=== PATIENT | female | born 1995 | race Caucasian/White ===

== ENCOUNTER 2017-12-25 22:19 | Inpatient (IN) ==
[2017-12-25] MEDS ORDERED: Mag Hydrox/Al Hydrox/Simeth 30 ML UDC PO PRN (22:34)
[2017-12-25] MEDS ORDERED: MOM Conc 10 ML UD.LIQ PO PRN (22:34)
[2017-12-25] MEDS ORDERED: *HR* LORazepam 1 MG TABLET PO PRN (22:34)
[2017-12-25] MEDS ORDERED: traZODone 50 MG TABLET PO PRN (22:34)
[2017-12-25] MEDS ORDERED: Haloperidol Lactate 5 MG/ML VIAL IM PRN (22:34)
[2017-12-25] MEDS ORDERED: *HR* LORazepam 2 MG/ML VIAL IM PRN (22:34)
[2017-12-25] MEDS: hydrOXYzine pamoate 25 MG CAPSULE PO PRN (23:58)
[2017-12-25] MEDS: Ibuprofen 400 MG TABLET PO PRN (23:58)
--- NOTE | 2017-12-26 12:54 | Psychiatry History & Physical ---
Date of Encounter: 12/26/17 Time of Encounter: 12:44 History of Present Illness Patient Stated Chief Complaint: suicidal ideation Medicare Admission Attestation: For traditional Medicare patients the provided hospital inpatient services are reasonable and necessary and in the case of services not specified as inpatient -only under 42 CFR 419.22 (n), that they are appropriately provided as inpatient services in accordance 42 CFR 412.3. For Critical Access Hospital the patient may reasonably be expected to be discharged or transferred to a hospital within 96 hours after admission to the Critical Access Hospital. Admitted From: Home Plans for Post Hospital Care: Home History of Present Illness: Ms. Little is a 22 year old female who was admitted after she superficially cut her arms with a knife and overdosed on 3mg of Prazosin and a couple mg of Klonopin. Client states she has no idea what triggered her. Was having a good morning and then felt suicidal all of a sudden. No history of prior suicide attempts. Client has a history of cutting behaviors off and on since middle school. Tumultuous past. recently left her although client states they are working things out. Was living in [place] but moved in with a friend closer to [place] when moved out. Plans to return to friend's house. Client is relatively new to mental health services. Was linked with a prescriber and counselor through [facility] but has only been in treatment for a few months. Despite limited treatment time client states she has been given multiple diagnoses including Bipolar Disorder, Panic Disorder , PTSD, and Borderline Personality Disorder. This is her first hospitalization. Client states her counselor just left the practice and it will be hard for her to see her prescriber now that she is no longer in [place]. [facility] services moved to [facility] but has been unable to get an appointment due to not having transportation or a permanent address. Client was prescribed Trileptal and Klonopin through [facility] and reports these meds were helping her. Was also prescribed Prazosin but client denies any benefit from this medication. Ran out of Trileptal a month ago and client believes this is part of the reason for her decompensation. Client also has been struggling with sleep and reports the Trazodone last night really benefitted her. Reports her SI is already better. Physically she has PCOS, Migraines, and trouble with her back and knees. No substance abuse issues. Will restart Trileptal, schedule Trazodone, and move Klonopin dosing to once daily as opposed to three times daily. Vistaril available as a prn. Past Med Surg Social Fam HX - Past Medical History Medical history: no medical history - Past Psychiatric History Psychiatric history: Reports: anxiety, depression Family psychiatric history: Unknown Family History of Suicide: Unknown - Past Surgical History Surgical History: no surgical history - Social History Smoking Status: Never smoker Smokeless Tobacco Status: No Alcohol use: none Drug use: none - Family History Mother Hx Family Medical Disorders: No Medications & Allergies 3 Allergy/AdvReac Type Severity Reaction Status Date / Time No Known Drug Allergies Allergy none Verified 12/25/17 22:34 Review of Systems Constitutional: Denies: fever, chills, weakness, weight change Eyes: Denies: eye pain, vision change Ears, Nose, Throat: Denies: ear pain, throat pain, dental pain, hearing loss, congestion Cardiovascular: Denies: chest pain, palpitations, dyspnea on exertion Respiratory: Denies: cough, dyspnea, wheezes Gastrointestinal: Denies: abdominal pain, nausea, vomiting, diarrhea, constipation Genitourinary male: Denies: urgency, dysuria, frequency, genital lesions Genitourinary female: Denies: urgency, dysuria, frequency, abnormal menses, dyspareunia Musculoskeletal: Reports: back pain, joint pain, myalgia Integumentary: Denies: rash, lesions, pruritus Neurological: Denies: headache, weakness, numbness, memory loss Endocrine: Denies: fatigue, heat or cold intolerance Hematologic/Lymphatic: Denies: easy bruising, lymphadenopathy Allergic/Immunologic: Denies: urticaria, itchy eyes Mental Status Exam Patient orientation: Yes Person, Yes Time, Yes Place Level of alertness: Alert Patient appearance: Appropriate Behavior: calm, cooperative Psychomotor activity: Normal Eye contact: Maintains Eye Contact Mood description: Anxious Affect description: blunted Speech pattern: Normal rate, Normal rhythm, Normal tone Speech volume: Normal Thought process: Linear Thought content: Yes Suicidal ideation, No Homicidal ideation, No Overt delusions Perceptual disturbances: No Auditory hallucinations, No Visual hallucinations Attention span: Capable of Focused Attention Memory description: Grossly Intact Patient reliability: Reliable Historian Intelligence estimate: Average Judgment: Limited Insight: Partial Exam - HEENT Head exam IM: Present: atraumatic Eye exam IM: Present: EOMI ENT exam IM: Present: mucous membranes moist - Neurological Neurological exam IM: Present: alert, oriented X3 - Respiratory Respiratory exam IM: Present: CTAB - GI/Abdominal GI/Abdominal exam IM: Present: normal bowel sounds - Extremities Extremities exam IM: Present: full ROM - Skin Skin exam IM: Present: normal color Results - Vital Signs Vital signs: Temp Pulse Resp BP 97 F 69 18 128/85 12/26/17 09:00 12/26/17 09:00 12/26/17 09:00 12/26/17 09:00 Assessment and Plan (1) Generalized anxiety disorder with panic attacks Current visit: Yes Status: Acute Plan: Admit inpatient for safety and stabilization, Close observation, Suicide Precautions per unit protocol, Encourage participation in unit milieu, Group Therapy, Monitor sleep, Monitor appetite Risks, benefits, side effects, alternatives discussed w/pt: Yes Patient agreeable to treatment: Yes Plans for Post Hospital Care: Home Estimated Length of Stay (Days): 3 (2) Post traumatic stress disorder (PTSD) Current visit: Yes Status: Acute Plan: Admit inpatient for safety and stabilization, Close observation, Suicide Precautions per unit protocol, Encourage participation in unit milieu, Group Therapy, Monitor sleep, Monitor appetite Risks, benefits, side effects, alternatives discussed w/pt: Yes Patient agreeable to treatment: Yes Plans for Post Hospital Care: Home Estimated Length of Stay (Days): 3 (3) Borderline personality disorder Current visit: Yes Status: Acute Plan: Admit inpatient for safety and stabilization, Close observation, Suicide Precautions per unit protocol, Encourage participation in unit milieu, Group Therapy, Monitor sleep, Monitor appetite Risks, benefits, side effects, alternatives discussed w/pt: Yes Patient agreeable to treatment: Yes Plans for Post Hospital Care: Home Estimated Length of Stay (Days): 3
[2017-12-26] MEDS: OXcarbazepine 150 MG TABLET PO SCH (13:31)
[2017-12-26] MEDS: hydrOXYzine pamoate 25 MG CAPSULE PO PRN (20:30)
[2017-12-26] MEDS: Ibuprofen 400 MG TABLET PO PRN (20:30)
[2017-12-26] MEDS ORDERED: traZODone 50 MG TABLET PO SCH (21:00)
[2017-12-27] MEDS ORDERED: clonazePAM 0.5 MG TABLET PO SCH (09:00)
[2017-12-27] MEDS: OXcarbazepine 150 MG TABLET PO SCH (09:41)
[2017-12-27 10:04] VITALS: BP 134/91
--- NOTE | 2017-12-27 10:06 | Discharge Summary ---
Date of Encounter: 12/27/17 Time of Encounter: 10:03 Diagnosis - Discharge Diagnosis (1) Generalized anxiety disorder with panic attacks Status: Acute (2) Post traumatic stress disorder (PTSD) Status: Acute (3) Borderline personality disorder Status: Acute Medications - Discharge Medications Prescriptions: OXcarbazepine [Trileptal] 300 mg PO DAILY #60 tablet traZODone [TraZODone] 50 mg PO HS #30 tablet OXcarbazepine [Trileptal] 300 mg PO DAILY #60 tablet 12/27/17 [Rx] traZODone [TraZODone] 50 mg PO HS #30 tablet 12/27/17 [Rx] 3 Allergy/AdvReac Type Severity Reaction Status Date / Time No Known Drug Allergies Allergy none Verified 12/25/17 22:34 Provider Date of admission: 12/25/17 22:22 Primary care physician: PCP NONE Discharging clinician: Mary Canela Assessment and Plan - Patient/Caregiver Discharge Instructions Activity: resume usual activities as tolerated Diet: regular diet - Follow up Plan Follow up with: NONE,PCP [Primary Care Provider] - Gary Leon [Family Provider] - Functional capacity at discharge: independent ambulation Overall status at discharge: Stable Disposition: Home, Self-Care Hospital Course Hospital course: Ms. Little is a 22 year old female who was admitted secondary to SI, cutting, and overtaking her prescription medications. Client had recently moved back to the area and was no longer linked with her providers in [place]. She had run out of her Trileptal which is the medication she finds most helpful. She was also sleeping poorly at home. She was restarted on her Trileptal in the hospital and Trazodone was added for sleep. Client responded well these medications. She had been taking Prazosin and Klonopin at home. Her Prazosin was stopped and her Klonopin dose was reduced by more than half. Client tolerated the med changes and responded well to her new regimen. She started denying SI. She denied any urges to cut. She slept well. On the day of discharge she reported feeling better than she had in a long time. She had plans to go and stay with her aunts who client said would manage her medications and insure she stayed safe. [place] staff will call client tomorrow with new linkage appointments. Stressed the importance of therapy and client is in agreement. She denied SI/HI/AH/VH on the day of discharge. She had been calm and cooperative in the hospital with no issues. - Time Spent with Patient Total time spent providing and/or coordinating discharge services: Quality - Multiple Antipsychotics Patient discharged on 2 or more antipsychotic medications: No Procedures - Procedures Procedures: Medication Management, Crisis Stabilization, Supportive Therapy, Group Therapy Mental Status Exam - Mental Status Exam Patient orientation: Yes Person, Yes Time, Yes Place Level of alertness: Alert Patient appearance: Appropriate, Well Groomed Behavior: calm, cooperative Psychomotor activity: Normal Eye contact: Maintains Eye Contact Mood description: Euthymic/stable Affect description: congruent with mood, full range Speech pattern: Normal rate, Normal rhythm, Normal tone Speech Volume: Normal Thought process: Linear, Goal Oriented Thought Content: No Suicidal ideation, No Homicidal ideation, No Overt delusions Perceptual Disturbances: No Auditory hallucinations, No Visual hallucinations Judgment: Fair Insight: Partial
== END 2017-12-27 11:20 | disposition home or self-care (01) | DRG 589 ==
LOC: 1ANU 22:22
PROVIDERS: ADMIT Psychiatry & Neurology Psychiatry; ATTEND Psychiatry & Neurology Psychiatry